=== PATIENT | female | born 1940 | race Caucasian/White ===

== ENCOUNTER → 2020-08-17 13:46 | Outpatient (CLI) | payer MEDICARE, SELFPAY ==
--- NOTE | ~2020-08-17 | XR_ITS ---
EXAMINATION: XR shoulder LT min 2V DATE: 08/17/2020 15:34 INDICATION: Left shoulder pain. TECHNIQUE: 4 views of left shoulder were obtained. COMPARISON: None. FINDINGS: Bone alignment is normal. No fracture. There is mild osteoarthritis of glenohumeral joint. Acromioclavicular joint is normal. IMPRESSION: 1. Mild left glenohumeral joint osteoarthritis. Reviewed, dictated and finalized at location A.
== END ==
PROVIDERS: PCP Family Medicine; Visit Provider Family Medicine
DX: M19.012 Primary osteoarthritis, left shoulder (principal)
CPT/HCPCS: 73030

== ENCOUNTER → 2020-08-20 16:45 | Outpatient (CLI) | payer MEDICARE, SELFPAY ==
--- NOTE | ~2020-08-20 | XR_ITS ---
EXAMINATION: XR finger 5th RT min 2V DATE: 08/20/2020 16:59 INDICATION: Right hand fifth digit pain and swelling. TECHNIQUE: 4 views of right hand fifth digit were obtained. COMPARISON: None. FINDINGS: Bone alignment is normal. No fracture. There is mild osteoarthritis of fifth proximal and d istal interphalangeal joints. There is a punctate calcification at dorsal aspect of fifth distal inte rphalangeal joint. IMPRESSION: 1. Mild polyarticular osteoarthritis. Reviewed, dictated and finalized at location A.
== END ==
PROVIDERS: PCP Family Medicine; Visit Provider Family Medicine
DX: S63.619A Unspecified sprain of unspecified finger, initial encounter (principal); X58.XXXA Exposure to other specified factors, initial encounter; M19.041 Primary osteoarthritis, right hand
CPT/HCPCS: 73140

== ENCOUNTER → 2020-09-02 12:53 | Outpatient (CLI) | payer MEDICARE, SELFPAY ==
--- NOTE | ~2020-09-02 | MR_ITS ---
EXAMINATION: MR shoulder LT wo con DATE: 09/02/2020 13:33 INDICATION: Left shoulder pain. TECHNIQUE: Magnetic resonance imaging (MRI) of the left shoulder was performed without intravenous co ntrast. Sequences included axial PD-weighted FS FSE, coronal oblique PD-weighted FS FSE and T2-weight ed FS FSE, and sagittal oblique T2-weighted FS FSE and T1-weighted FSE. COMPARISON: Left shoulder radiograph 08/17/2020 FINDINGS: Coracoacromial arch: The acromion undersurface is curved in morphology (type II). There is moderate acromioclavicular join t osteoarthritis including inferior directed osteophytes. There is mild subacromial/subdeltoid bursit is. Rotator cuff: There is severe supraspinatus tendinopathy and moderate infraspinatus tendinopathy. Teres minor tendo n is normal. There is mild subscapularis tendinopathy. No tear. There is no asymmetric fatty atrophy of the rotator cuff muscle bellies. Biceps tendon and glenoid labrum: Biceps tendon is in bicipital groove. There is a longitudinal split tear of biceps tendon. There is d egenerative tearing of the superior labrum (SLAP tear). Fluid: There is a small glenohumeral joint effusion. Bones/cartilage: There is deep partial thickness cartilage loss of glenoid involving the central and posterior articul ar surface. There is partial-thickness cartilage loss of humeral head. Osteophytes are noted. IMPRESSION: 1. Severe rotator cuff tendinopathy. No tear. 2. Longitudinal split tear of biceps tendon. 3. Moderate glenohumeral joint chondrosis. 4. Moderate acromioclavicular joint osteoarthritis. 5. Small glenohumeral joint effusion. 6. Mild subacromial/subdeltoid bursitis. Reviewed, dictated and finalized at location A.
== END ==
PROVIDERS: PCP Family Medicine; Visit Provider Family Medicine
DX: M75.52 Bursitis of left shoulder (principal); M19.012 Primary osteoarthritis, left shoulder; M25.412 Effusion, left shoulder
CPT/HCPCS: 73221

== ENCOUNTER 2021-04-02 14:04 | Outpatient (CLI) | payer MEDICARE, SELFPAY ==
--- NOTE | ~2021-04-02 | DEXA_ITS ---
Bone Density Report Name: ORESTES NDIAYE Age: 80 Sex: Female Ethnicity: White Date of : 1940 Indication: osteopenia; height loss; hysterectomy; Referring Provider: DIMITRIS HSU Study: Bone densitometry was performed. Exam Date: April 02, 2021 Accession number: [id number] Bone Density: Region BMD T-score Z-score Classification AP Spine (L1-L4) 0.867 -1.6 1.0 Osteopenia Femoral Neck (Left) 0.594 -2.3 0.0 Osteopenia Total Hip (Left) 0.724 -1.8 0.2 Osteopenia Total Hip Bilateral Avg 0.747 -1.6 0.4 Osteopenia Femoral Neck (Right) 0.583 -2.4 -0.1 Osteopenia Total Hip (Right) 0.769 -1.4 0.6 Osteopenia World Health Organization criteria for BMD impression classify patients as: Normal (T-score at or above -1.0), Osteopenia (T-score between -1.0 and -2.5), or Osteoporosis (T-score at or below -2.5). 10-year Fracture Risk(1): Major Osteoporotic Fracture 18% Hip Fracture 5.7% Reported Risk Factors: [place] (), Neck BMD=0.583, BMI=27.1 (1) FRAX(R) Version 3.08. Fracture probability calculated for an untreated patient. Fracture probability may be lower if the patient has received treatment. Previous Exams: Region Exam Age BMD T-score BMD Change BMD Change Date g/cm2 vs Baseline vs Previous AP Spine(L1-L4) 04/02/2021 80 0.867 -1.6 0.084(10.7%)* 0.084(10.7%)* 11/25/2015 75 0.783 -2.4 Total Hip(Left) 04/02/2021 80 0.724 -1.8 -0.050(-6.4%)* -0.050(-6.4%)* 11/25/2015 75 0.774 -1.4 Total Hip(Right) 04/02/2021 80 0.769 -1.4 -0.028(-3.5%)* -0.028(-3.5%)* 11/25/2015 75 0.797 -1.2 *Denotes significance at 95% confidence level, LSC for AP Spine = 0.022 g/cm2, LSC for Total Hip = 0.027 g/cm2 Clinical Information Provided by Patient: Has used the following medications: Vitamin D, Calcium Has the following medical conditions: Hysterectomy Patient maximum height was 61 Menopause Age: 41 No regular weight bearing exercise Drinks caffeinated beverages Onset of menses at age 14 Number of children 2 Impression: The patient has low bone mass, based on the Right Femoral Neck T-score. The patient has an estimated ten-year risk of hip fracture of 5.7% and an estimated ten-year risk of major fracture of 18%, based on the WHO FRAX algorithm. The BMD for the Total Hip(Left) decreased, changing by -6.4% since the last DXA exam. The BMD for the Total Hip(Right) decreased, changing by -3.5% since the last DXA exam. Discussion
--- NOTE | ~2021-04-02 | MM_ITS ---
EXAMINATION: MM screening adelia BI w louisa HISTORY: Screening TECHNIQUE: Craniocaudal and mediolateral oblique 3-D tomosynthesis images were obtained and synthetic 2-D images were generated. CAD analysis was submitted and interpreted. COMPARISON: No prior mammogram is available for comparison at this institution. BREAST PARENCHYMAL COMPOSITION: The breasts are heterogenously dense, which may obscure small masses. FINDINGS: There are bilateral masses in the mid outer aspect of the right breast, middle third in the upper outer quadrant of the left breast posterior third. There are no suspicious calcifications or a rchitectural distortion. IMPRESSION: 1. Bilateral breast masses. 2. Additional mammographic views and possible breast ultrasound are recommended. BI-RADS Category 0: Incomplete: Needs additional imaging evaluation. Reviewed, dictated and finalized at location A. 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 Bilateral breast masses. 2. Additional mammographic views and possible breast ultrasound are recommended . BI-RADS Category 0: Incomplete: Needs additional imaging evaluation.
== END 2021-04-02 14:05 | disposition home or self-care (01) ==
LOC: ANHIMG 14:06
PROVIDERS: PCP Family Medicine; Visit Provider Family Medicine
DX: Z12.31 Encounter for screening mammogram for malignant neoplasm of breast (principal); Z78.0 Asymptomatic menopausal state; R92.8 Other abnormal and inconclusive findings on diagnostic imaging of breast; M85.89 Other specified disorders of bone density and structure, multiple sites
CPT/HCPCS: 77063; 77067; 77080

== ENCOUNTER → 2021-06-02 15:40 | Outpatient (CLI) | payer MEDICARE, SELFPAY ==
--- NOTE | ~2021-06-02 | XR_ITS ---
EXAMINATION: HAND-FELIBERTO ARTHRITIS 3+VIEWS DATE: 06/02/2021 15:52 INDICATION: Unspecified joint pain at the bilateral hands TECHNIQUE: Posteroanterior, lateral, and oblique views of the left and of the right hands as well as a ballcatchers view of both hands were obtained. COMPARISON: None. FINDINGS: Alignment is normal at both hands and wrists. No fracture. Polyarticular osteoarthritis, severe at th e left first carpometacarpal and right second distal interphalangeal joints, moderate severity at the left first carpometacarpal joint and remaining bilateral distal interphalangeal joints and mild at t he bilateral triscaphe, midcarpal joints and the remaining metacarpophalangeal and interphalangeal roselia ints. No erosions to suggest an inflammatory arthritis. Diffuse osteopenia. IMPRESSION: 1. Moderate to severe polyarticular osteoarthritis at the bilateral hands. Reviewed, dictated and finalized at location A. 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
== END ==
PROVIDERS: PCP Family Medicine; Visit Provider Family Medicine
DX: M25.50 Pain in unspecified joint (principal); M19.042 Primary osteoarthritis, left hand; M19.041 Primary osteoarthritis, right hand
CPT/HCPCS: 73130

== ENCOUNTER 2022-06-23 16:27 | Emergency (ER) | payer MEDICARE, SELFPAY ==
--- NOTE | ~2022-06-23 | XR_ITS ---
EXAMINATION: XR chest 2V DATE: 06/23/2022 17:09 INDICATION: Chest pain. TECHNIQUE: PA and lateral views of the chest were obtained. COMPARISON: Chest radiograph date FINDINGS: The lungs remain clear with no focal airspace opacities, pulmonary edema, pleural effusion or pneumot horax. The cardiomediastinal silhouette is normal. Mild thoracolumbar levocurvature with mild spondyl osis. IMPRESSION: 1. No acute cardiopulmonary disease. Reviewed, dictated and finalized at location A. 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
--- NOTE | 2022-06-23 16:48 | ECG_ITS ---
Measurements Intervals [place] Rate: 81 P: -9 MD: 135 QRS: 5 QRSD: 77 T: 59 QT: 368 QTc: 430 Interpretive Statements SINUS RHYTHM NORMAL ECG NO PREVIOUS ECG AVAILABLE FOR COMPARISON Electronically Signed On 06-23-2022 19:10:24 MANUFACTURER AGENT by Sd Torres D.O.
[2022-06-23 17:04] LABS: Basophils Percent Auto 0.2 % (0.2-1.2); Eosinophils Absolute Auto 0.1 K/mm3 (0-0.3); Eosinophils Percent Auto 1.2 % (0-4.4); Hemoglobin 11.9 g/dL (12.0-15.0); Immature Granulocyte Absolute 0.02 K/mm3 (0.00-0.031); Immature Granulocyte Percent A 0.2 % (0-0.5); Lymphocytes Percent Auto 18.1 % (18.3-44.2); Mean Corpuscular HGB Conc 32.2 g/dl (32-36); Mean Corpuscular Hemoglobin 29.8 pg (26-34); Mean Corpuscular Volume 92.5 fl (80-100); Monocytes Absolute Auto 0.9 K/mm3 (0.1-0.6); Monocytes Percent Auto 10.2 % (2.6-8.5); Neutrophils Absolute Auto 6.2 K/mm3 (1.3-6.7); Neutrophils Percent Auto 70.1 % (45.5-73.1); Platelet Count Result 373 k/mm3 (150-375); Red Cell Distribution Width 12.5 % (11.5-14.5); White Blood Count 8.9 K/mm3 (4.5-10.0)
[2022-06-23 17:15] LABS: Alanine Aminotransferase 24 U/L (6-35); Albumin Level 3.9 g/dL (3.5-5.1); Alkaline Phosphatase 93 U/L (38-126); Anion Gap 6 mmol/L (8-16); Aspartate Amino Transferase 31 U/L (14-36); Bilirubin,Total 0.9 mg/dL (0.2-1.3); Blood Urea Nitrogen 20 mg/dL (7-17); Calcium 8.9 mg/dL (8.4-10.2); Carbon Dioxide 28 mmol/L (22-30); Chloride 102 mmol/L (98-107); Estimated Glomerular Filt Rate > 60; Glucose 119 mg/dL (65-110); Lipase 107 U/L (23-300); Potassium 4.2 mmol/L (3.4-5.0); Prothrombin Time 12.6 Seconds (11.1-14.7); Sodium 136 mmol/L (137-145)
[2022-06-23 17:16] LABS: Partial Thromboplastin Time 29.2 SECONDS (22.3-36.8)
[2022-06-23 17:26] LABS: Troponin I < 0.012 ng/mL (0.000-0.034)
[2022-06-23 17:55] VITALS: BP 141/77; PULSE 78; RESP 15; TEMP 36.6; O2SAT 97
[2022-06-23 20:35] LABS: NT Pro B Type Natriuretic Pept 278 pg/mL (19.9-100)
[2022-06-23 20:37] LABS: Troponin I < 0.012 ng/mL (0.000-0.034)
[2022-06-23 20:38] LABS: D Dimer 0.75 ug/mL (<0.48)
--- NOTE | 2022-06-23 20:43 | ED.GENADULT ---
HPI - General Adult General Chief complaint: Chest Pain Stated complaint: chest pain Time Seen by Provider: 06/23/22 19:06 History of Present Illness HPI narrative: this is an 81-year-old female presenting to ED with left-sided chest pain. She has been having it on and off for the last 3 weeks. It is a sharp pain on the left side of her chest underneath her breast. It is nonradiating, 3/10 intensity. It last for 5-6 seconds at a time. It had occurred about 10 times today. She has never experienced pain like this before and they are exacerbating relieving factors. She is taking Tylenol with no relief. It is not associated with exertion diaphoresis vomiting or radiation. Patient denies fever, chills, productive cough or lower extremity edema. She does note a 20 lb weight loss over the last 3 months although she states this is because she has been far more active as her and her elderly attempt to make a large long distance relocation. Patient admits to caring significant amount of boxes lately while moving. Patient had an MN with stenting at 50 years of age. Related Data Home Medications Medication Instructions Recorded Confirmed aspirin 81 mg tablet,delayed 81 mg PO DAILY 10/21/20 06/16/22 release (Adult Low Dose Aspirin) naproxen sodium 220 mg tablet 220 mg PO BID PRN 10/21/20 06/16/22 (Flanax (naproxen)) Allergies Allergy/AdvReac Type Severity Reaction Status Date / Time Antihistamines - Alkylamine Allergy Intermediate SEVERE Verified 06/16/22 16:24 HEADACHE amoxicillin Allergy Unknown Unknown Verified 06/16/22 16:24 atorvastatin Allergy Unknown Unknown Verified 06/16/22 16:24 clarithromycin Allergy Unknown Unknown Verified 06/16/22 16:24 rosuvastatin Allergy Unknown Unknown Verified 06/16/22 16:24 theophylline Allergy Unknown headache Verified 06/16/22 16:24 ezetimibe [From Zetia] AdvReac Mild Muscle Pain Verified 06/16/22 16:24 [facility] Past Medical History Medical History Acute bronchitis Acute non-recurrent maxillary sinusitis Acute recurrent maxillary sinusitis 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 HME refused. Surgical History Surgical History H/O angioplasty H/O cardiac catheterization (~1992) H/O: hysterectomy (~1982) History of arthroplasty of knee (~2015) History of tonsillectomy Family History Family History Mother Family history of cardiovascular disease Acute myocardial infarction Hypertension Family history of elevated blood lipids Family history of coronary artery disease Social History Social History Social History: Caffeine- tea daily Smoking status: Never smoker Alcohol intake: current Alcohol use details: Occasionally Substance use: never Substance use type: does not use Exam Narrative: APPEARANCE: No apparent distress. patient is pleasant and polite during the interview. She is quite animated. Head: atraumatic. EYES: EOMI, NOSE: Atraumatic NECK: Trachea midline RESPIRATORY: No increased rate of breathing, clear to auscultation bilaterally CARDIOVASCULAR: RRR, no peripheral vinod
[2022-06-23 21:38] VITALS: BP 142/82; PULSE 79; RESP 20; O2SAT 97
== END 2022-06-23 22:07 | disposition home or self-care (01) ==
PROVIDERS: Emergency Medicine; Emergency Provider Emergency Medicine; PCP Family Medicine
DX: R07.89 Other chest pain (principal); I25.2 Old myocardial infarction; I25.118 Atherosclerotic heart disease of native coronary artery with other forms of angina pectoris; I73.00 Raynaud's syndrome without gangrene; E78.2 Mixed hyperlipidemia; E88.81 Metabolic syndrome and other insulin resistance; Z95.5 Presence of coronary angioplasty implant and graft; Z96.659 Presence of unspecified artificial knee joint; Z90.710 Acquired absence of both cervix and uterus; Z79.82 Long term (current) use of aspirin
CPT/HCPCS: 36415; 71046; 80053; 83690; 83880; 84484; 85025; 85380; 85610; 85730; 93005; 99284